=== PATIENT | female | born 1990 | race Caucasian/White ===

== ENCOUNTER 2020-09-03 11:51 | Inpatient (IN) ==
[2020-09-03] MEDS ORDERED: Metoclopramide 10 MG/2 ML VIAL IVP PRN (14:38)
[2020-09-03] MEDS ORDERED: Ondansetron 4 MG/2 ML VIAL IVP PRN (14:38)
[2020-09-03] MEDS ORDERED: Famotidine 20 MG/2 ML VIAL IVP PRN (14:38)
[2020-09-03] MEDS ORDERED: Azithromycin 500 MG in 0.9 % Sodium Chloride 250 ML IVPB ONE (14:38)
[2020-09-03] MEDS ORDERED: *HR* Nalbuphine 10 MG/ML AMPUL IV PRN (14:38)
[2020-09-03] MEDS ORDERED: Naloxone 0.4 MG/ML INJ IVP PRN (14:38)
[2020-09-03] MEDS ORDERED: Ringers Solution, Lactated 1,000 ML IVC SCH (14:45)
[2020-09-03 15:21] LABS: Amphetamine Screen,Urine Negative ng/mL (Cutoff=1000); Barbiturate Screen,Urine Negative ng/mL (Cutoff=200); Benzodiazepines Screen,Urine Negative ng/mL (Cutoff=200); Cannabinoid Screen,Urine Negative ng/mL (Cutoff = 50); Cocaine Screen,Urine Negative ng/mL (Cutoff= 300); Opiate Screen,Urine Negative ng/mL (Cutoff=300); Phencyclidine Screen,Urine Negative ng/mL (Cutoff=25)
[2020-09-03 15:26] LABS: Basophils # 0.1 K/mcL (0.0-0.2); Basophils % 0.4 %; Eosinophils # 0.2 K/mcL (0.0-0.6); Eosinophils % 1.4 %; Hematocrit 36.6 % (35.3-44.9); Hemoglobin 12.2 g/dL (11.5-15.4); Immature Granulocytes % 0.6 % (0-4); Lymphocytes # 2.2 K/mcL (0.6-4.6); Lymphocytes % 15.3 %; Mean Corpuscular HGB Conc 33.3 g/dL (31.6-35.5); Mean Corpuscular Hemoglobin 30.4 pg (28.0-33.3); Mean Corpuscular Volume 91.3 fL (83.0-100.0); Mean Platelet Volume 12.1 fL (9.4-12.4); Monocytes # 0.8 K/mcL (0.0-1.3); Monocytes % 5.5 %; Neutrophils # 10.8 K/mcL (1.6-8.9); Platelet Count 233 K/mcL (140-400); Red Blood Count 4.01 M/mcL (3.82-4.97); Red Cell Distribution Width 14.2 % (11.5-14.5); Segmented Neutrophils % 76.8 %; White Blood Count 14.1 K/mcL (4.3-11.1)
[2020-09-03] MEDS ORDERED: EPHEDrine 50 MG/ML VIAL IVP PRN (16:22)
[2020-09-03] MEDS ORDERED: *HR* FentaNYL (PF) 100 MCG/2 ML VIAL EP ONE (16:22)
[2020-09-03] MEDS ORDERED: Ropivacaine/PF 0.2% 20 ML VIAL EP ONE (16:22)
[2020-09-03] MEDS ORDERED: Epidural Premix (fent/bupiv) 110 ML EP SCH (16:30)
[2020-09-03] MEDS ORDERED: Oxytocin 20 units/ LR 1000 mL 20 UNIT/1,000 ML BAG IVC ONE (16:50)
[2020-09-03 17:50] LABS: Hepatitis B Surface Antigen Nonreactive (Nonreactive)
[2020-09-03 18:18] LABS: HIV-1&2 Antibody & p24 Ag Nonreactive (Nonreactive)
[2020-09-03] MEDS ORDERED: *HR* HYDROcodone/Acet 5/325 mg TABLET PO PRN (18:38)
[2020-09-03] MEDS ORDERED: Oxytocin 20 units/ LR 1000 mL 20 UNIT/1,000 ML BAG IVC SCH (18:38)
[2020-09-03] MEDS ORDERED: Measles/Mumps/Rubella Vacc 0.5 ML VIAL SQ PRN (18:38)
[2020-09-03] MEDS ORDERED: Acetaminophen 325 MG TABLET PO PRN (18:38)
[2020-09-03] MEDS ORDERED: Benzocaine/Menthol 56 GM AEROSOL SPRAY TP PRN (18:38)
[2020-09-03 18:53] LABS: Varicella Zoster IgG Antibody Positive
[2020-09-03 18:54] LABS: Rubella IgG Antibody POSITIVE (POSITIVE)
[2020-09-03] MEDS: Ibuprofen 600 MG TABLET PO PRN (21:03)
[2020-09-03] MEDS: Lanolin 7 G OINT...G. TP PRN (21:03)
[2020-09-04] MEDS: Ibuprofen 600 MG TABLET PO PRN ×2 (04:08→10:30)
[2020-09-04 05:15] LABS: Basophils % 0.2 %; Eosinophils # 0.1 K/mcL (0.0-0.6); Eosinophils % 0.7 %; Hematocrit 29.2 % (35.3-44.9); Immature Granulocytes % 0.5 % (0-4); Lymphocytes # 2.7 K/mcL (0.6-4.6); Lymphocytes % 13.6 %; Mean Corpuscular HGB Conc 33.6 g/dL (31.6-35.5); Mean Corpuscular Hemoglobin 30.9 pg (28.0-33.3); Mean Corpuscular Volume 92.1 fL (83.0-100.0); Mean Platelet Volume 12.2 fL (9.4-12.4); Monocytes # 1.2 K/mcL (0.0-1.3); Monocytes % 6.2 %; Neutrophils # 15.4 K/mcL (1.6-8.9); Platelet Count 195 K/mcL (140-400); Red Blood Count 3.17 M/mcL (3.82-4.97); Red Cell Distribution Width 14.4 % (11.5-14.5); Segmented Neutrophils % 78.8 %; White Blood Count 19.5 K/mcL (4.3-11.1)
[2020-09-04 05:19] LABS: Hemoglobin 9.8 g/dL (11.5-15.4)
[2020-09-04] MEDS ORDERED: Prenatal Vit/FA 1 EACH TABLET PO SCH (09:00)
[2020-09-04] MEDS: Lanolin 7 G OINT...G. TP PRN (10:30)
[2020-09-04 15:43] VITALS: BP 115/82
== END 2020-09-04 20:09 | disposition home or self-care (01) | DRG 798 ==
LOC: 1NENULAB 11:51 → 1NENUOBS 20:46
PROVIDERS: ADMIT Advanced Practice Midwife; ATTEND Advanced Practice Midwife